=== PATIENT | female | born 1970 | race Caucasian/White ===

== ENCOUNTER 2024-01-30 09:12 | Outpatient (AMB) | payer BC, SELFPAY ==
--- NOTE | 2024-01-30 09:19 | MHC.PC.OV ---
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 Intake Note: New patient visit Chemist Organic Required: No Allergies No Known Allergies Allergy (Verified 01/30/24 09:27) Tobacco use date assessed: 01/30/24 Dental Screening Dental Screen Date: 01/30/24 Did you have a dental visit in the last 12 months?: Yes Did you have a dental problem in the last 6 months where you did not have access to dental care?: No Was dental information given to patient?: Patient has dentist HPI HPI Comments History of Present Illness Details This is a 53-year-old female with a past medical history of obesity, hereditary angioedema and breast abscess presenting for a follow up visit. She transferred from my panel at [facility] [place]. Hereditary angioedema is a familial condition, and the patient reports having an injectable medication, Rucanest, for acute episodes. However, she has not experienced any flare-ups for several years and maintains regular follow-ups with an antichecking iron worker, Dr. Schwarz, every six months. Regarding her overweight status, the patient has been on Wegovy. She reports being stable on a dose of 1.7 mg but plans to increase to 2.4 mg since weight loss plateaued. The medication has helped her lose approximately 40 pounds, and she manages her weight through lower carbohydrate and sugar intake as well as portion control. She tries to incorporate walking for exercise, though her activity has been limited by cold weather. She denies side effects on the medication. The patient mentioned a sudden appearance of a dry patch on her face since Tuesday. The patch is only a little itchy, and she has been applying a moisturizing cream.. There was no exposure to new products or adverse symptoms such as fever or chills. Records transfer pending. Past screenings like mammograms, colonoscopy, and routine gynecological visits are up to date per patient. Patient was informed and verbally consented to the use of an ambient scribe for clinic note documentation during this visit. ROS: - Dermatological: Reports a dry patch on the face. Denies itching. - Gastrointestinal: Denies nausea, vomiting. Reports occasional constipation. - General: Denies fever, chills. - Cardiovascular: Denies issues with blood pressure or cholesterol. - Other systems: Denies relevant symptoms. PE: Constitutional: Alert, in no distress. Head: Normocephalic. Neck: Supple, Full range of motion. No lymphadenopathy. Respiratory: Clear to auscultation. Cardiovascular: S1 S2 regular. No murmurs. Skin: Dry patch noted, mildly erythematous, slightly scaly, with a little central clearing on right chin. 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 1. Little interest or pleasure in doing things: not at all 2. Feeling down, depressed, or hopeless: not at all 3. Trouble falling or staying asleep, or sleeping too much: not at all 4. Feeling tired or having little energy: not at all 5. Poor appetite or overeating: not at all 6. Feeling bad about yourself - or that you are a failure or have let yourself or your family down: not at all 7. Trouble concentrating on things, such as reading the newspaper or watching television: not at all 8. Moving or speaking so slowly that other people could have noticed. Or the opposite - being so fidgety or restless that you have been moving around a lot more than usual: not at all 9. Thoughts that you would be better off or of hurting yourself in some way: not at all Total score: 0 Depression Screening Interpretation: Negative Depression Screening Done: Yes 26986 - PHQ-9 Billing: Yes Source: Developed by Drs. Aristides Hamilton, Debbie Carson, Javon Warner and colleagues, with an educational rosa maria from [employer]. Thrive Questionnaire Date Thrive assessed: 01/25/24 I am a: Patient What is your living situation today?: I have a steady place to live Within the past 12 months, did the food you bought not last and you didn't have the money to get more?: Never true Within the past 12 months, did you worry whether your food would run out before you got money to buy more?: Never true Do you have trouble paying for medicines?: No Do you have trouble getting transportation to medical appointments?: No Do you have trouble paying your heating and electricity bill?: No Do you have trouble taking care of your child, family member or friend?: No Do you have trouble with day-to-day activities such as bathing, preparing meals, shopping, managing finances, etc.?: No Are you currently unemployed and looking for a job?: No Are you interested in more education?: No Please select the resources that you would like help with: None Currently or been in a relationship where the following occur: No concerns reported THRIVE Score: 0 AUDIT C Alcohol Use Questionnaire (AUDIT-C) 1. How often do you have a drink containing alcohol?: Monthly or less 2. How many drinks containing alcohol do you have on a typical day when you are drinking?: 1 or 2 3. How often do you have six or more drinks on one occasion?: Never Total Score: 1 GREGORIA-7 AMB Questionnaire GREGORIA-7 Date GREGORIA - 7 assessed: 01/30/24 Feeling nervous, anxious, or on edge: 0 = Not at all Not being able to stop or control worryin = Not at all Worrying too much about different things: 0 = Not at all Trouble relaxin = Not at all Being so restless that it is hard to sit still: 0 = Not at all Becoming easily annoyed or irritable: 0 = Not at all Feeling afraid as if something awful might happen: 0 = Not at all Total GREGORIA-7 score (0-4 normal; 5-9 mild; 10-14 moderate; 15-21 severe): 0 Source: Developed by Drs. Aristides Hamilton, Javon Roach and colleagues, with an educational rosa maria from [employer]. GREGORIA-7 Assessment Billing GREGORIA-7 Assessment Tool: GREGORIA-7 Assessment 37706 Physical exam (Primary Care) Vital Signs: Last Vital Signs Pulse 78 01/30/24 09:25 BP 108/78 01/30/24 09:25 Pulse Ox 99 01/30/24 09:25 Oxygen Delivery Method Room Air 01/30/24 09:25 BMI result Body Mass Index 24.9 Tobacco/Smoking Status: Tobacco use Status Tobacco use date assessed 01/30/24 01/30/24 09:28 Patient Tobacco Use Status Former Tobacco user 01/30/24 09:28 e-Cigarette/Vaping Use Never Used 01/30/24 09:28 PHQ-9: PHQ-9 Score PHQ-9: Total score 0 01/30/24 09:28 Depression Screening Interpretation: Negative Thrive Assessment: Date of Thrive Assessment Date Thrive assessed 01/25/24 01/30/24 09:28 Currently or been in a relationship where the following occur: No concerns reported Coding Level of Care Code Est Pt Level 4 (74862) Complex EM visit Add On G2211 Diagnoses Hereditary angioedema D84.1 Obesity E66.9 Dermatitis L30.9 Additional Codes GREGORIA-7 Assessment Billing - GREGORIA-7 Assessment Tool: GREGORIA-7 Assessment 70363 ([id number]) PHQ-9 - 16665 - PHQ-9 Billing: Yes ([id number]) Assessment & Plan Assessment & Plan (1) Hereditary angioedema: Code(s): D84.1 - Defects in the complement system Category: Medical (2) Obesity: Code(s): E66.9 - Obesity, unspecified Category: Medical (3) Dermatitis: Code(s): L30.9 - Dermatitis, unspecified Plan 1. Hereditary Angioedema: The patient has not experienced any recent flare-ups and manages the condition with Rucanest injections as needed. Continue regular follow-ups with the antichecking iron worker every six months to monitor and update treatment as necessary. 2. Overweight: Continue Wegovy with plans to increase to 2.4 mg for enhanced weight management. Emphasized the importance of diet modifications, focusing on lower carbohydrate and sugar intake, and portion control. Encouraged maintaining regular physical activity as much as possible, considering seasonal challenges. 3. Dermatitis: Apply hydrocortisone 1% cream twice daily for 7-10 days. Topical steroids side effects reviewed. Patient advised to contact the office if symptoms do not improve or worsen. She will schedule a physical exam in 07/17/2024. Labs ordered to be done prior to physical exam. Orders: Orders Comprehensive Met. Panel Today D84.1 - Defects in the complement system, E66.9 - Obesity, unspecified, Z13.6 - Encounter for screening for cardiovascular disorders Lipid Panel Today D84.1 - Defects in the complement system, E66.9 - Obesity, unspecified, E78.5 - Hyperlipidemia, unspecified, Z13.6 - Encounter for screening for cardiovascular disorders Complete Blood Count no Diff Today D84.1 - Defects in the complement system, E66.9 - Obesity, unspecified, Z13.6 - Encounter for screening for cardiovascular disorders Medications: New semaglutide (weight loss) (Wegovy) 2.4 mg (0.75 mL) subcut QWEEK 3 mL 5RF hydrocortisone 1% (Anti-Itch (hydrocortisone)) 1 appl topical BID 10 days PRN 28.4 grams 0RF skin irritation
[2024-01-30 09:25] VITALS: BP 108/78; PULSE 78; O2SAT 99; BMI 24.9
== END 2024-01-30 09:55 | disposition home or self-care (01) ==
PROVIDERS: PCP Physician Assistant Medical; Visit Provider Physician Assistant Medical
DX: L30.9 Dermatitis, unspecified (principal); D84.1 Defects in the complement system; E66.9 Obesity, unspecified; Z68.24 Body mass index [BMI] 24.0-24.9, adult

== ENCOUNTER → 2024-01-30 09:12 | Outpatient (BNVA) | payer BC, SELFPAY | PROVIDERS: PCP Physician Assistant Medical; Visit Provider Physician Assistant Medical | DX: D84.1 Defects in the complement system (principal); E66.9 Obesity, unspecified; Z68.24 Body mass index [BMI] 24.0-24.9, adult; L30.9 Dermatitis, unspecified | CPT/HCPCS: 96127 ==

== ENCOUNTER 2024-07-12 08:44 | Outpatient (REF) | payer BC, SELFPAY ==
--- OUTSIDE RECORDS SUMMARY | 2024-07-12 09:09 | XMS_ITS | Data Portability ---
Author Organization [place] - [facility],, VI SOLORIO MD Address [address] [address] Care Team Providers Care Sterile Processing Tech Name Role Phone [facility] Primary Care Provide r Assessment No assessment recorded. Plan of Treatment Reminders Order Date Submit Date Provider Last Modified By Organization Details Last Modified Time Details Appointments ANNUAL EXAM 2024 11:00A M Vi Solorio MD Not available Not available Not available Lab pap test, thinprep, cervical 2023 024 [email or web address] [facility] (Centralized Electronic Ordering - All Locations), Patient Can Go To The Location Of Their Choice, [id number] 07/12/2023 07:26:13 hemoglobi n, gastroint estinal, stool 2023 024 [email or web address] In-Office Order, Internal Use Only DO Not Attach Compendium DO Not Attach Compendium, Do Not Delete/merge, [id number] 07/05/2023 10:10:13 pap test, thinprep, cervical 2022 023 [email or web address] [facility] (Centralized Electronic Ordering - All Locations), Patient Can Go To The Location Of Their Choice, [id number] 07/16/2022 07:27:04 fecal occult blood, stool 2022 023 [email or web address] 1 In-Office Order, Internal Use Only DO Not Attach Compendium DO Not Attach Compendium, Do Not Delete/merge, [id number] 07/02/2022 09:59:05 Referral None recorded. Procedures None recorded. Surgeries None recorded. Imaging MAMMO, screening , digital, bilateral - Breast Aspiratio n and/or Biopsy if needed 2023 024 [facility] [address] [place], [address], 08/16/2023 09:53:34 MAMMO, screening , digital, bilateral - Breast Aspiratio n and/or Biopsy if needed 2022 023 [facility] [address] [place], [address], 08/02/2022 09:28:03 Medication Orders fluconazo le 150 mg tablet 2021 022 [id number], [address], [id number], 07/02/2022 09:20:46 levofloxa lisha 500 mg tablet 2021 022 [facility] #[id number], [address] [address], [place], [place], [id number], 07/02/2022 09:20:50 Patient TargetsNo targets recorded. Patient Instructions Encounter Date Encounter Id Patient Instructions Last Modified By Organization Details Last Modified Time 11/23/2021 [id number] She is here because [facility] nad had the enlarging right breast abscess I and D, they put in a drain, which fell out this morning. She would like it rechecked as it is still painful, though it seems to be less red than on Tuesday. She notes they changed her antibiotic to Bactrim. Note from 11/17/21: right breast at the under edge of the breast around the 5 o'clock is a tender, erythematous, warm to the touch, 4 cm wide, 1 cm firm breast abscess, deep. She has an infected cyst of the right breast. Start dicloxacillin, it is too deep to be I and D. ' Start warm compresses BID, call if it worsens then would switch to levaquin. ____ On exam: right breast at the under edge of the breast around the 5 o'clock is a tender, erythematous, warm to the touch, 5 cm wide, 3 cm tall, firm breast abscess, draining purulent material on expression. The abscess is larger than it was last week when she was here, but she notes the erythema is much less than it was 2 days ago, so it is improving now. With slight pressure, 2 cc of purulent material is expressed, and a new dressing applied. She will continue the antibiotics and warm soaks, and return in 3 days to recheck. Call earlier if it enlarges. Not available 11/23/2021 11:56:31 11/26/2021 [id number] vaginal yeast infection: care instructions [facility] Not available 11/26/2021 11:19:44 She is here to recheck the breast abscess infection, it is not fully resolved with the Bactrim, is still draining purulent material, though less tender than before. The infection has note responded as would be expected if she were going to clear with the Bactrim, though it is a bit improved. As the weekend is coming, suggest she finish out the bactrim that ends on Tuesday. If not much improved by then, an rx for levaquin is called in to take as the infection had not cleared with a full course of sulfa. Possible side effects of tendon rupture with this medication, she is aware. RX Diflucan as she has been taking courses of antibiotics and this likely will bring on vaginal monila. All questions answered. Not available 11/26/2021 13:02:02 12/01/2021 [id number] She is here for recheck of her right breast abscess. She has 2 more days of her antibiotics left. She notes it is not painful anymore, and stopped draining fluid finally. On exam: right breast at the under edge of the breast around the 5 o'clock is a nontender resolving abscess, 2 wide, 2 cm cm tall. the incision opened with pressure, and 3 cc of purulent material was expressed, then just blood. The small amount of fluid remaining was expressed, the area looks to be improving greatly, and she still has 2 days of antibiotics left. Advised to return if it does not resolve or starts to worsen, otherwise it should slowly improve and resolve. Not available 12/01/2021 14:00:57 07/02/2022 [id number] learning about healthy weight Not available 07/02/2022 09:59:05 She is here for annual, she had a right breast abscess in that old cyst that had been noted at last annual, it required I and D in the ED, was still 5 cm days later, and took quite a while to heal. She was advised to have the nidus removed after it resolved however she prefers not to do that. __ note from 07/19: She is her for annual exam, as a new patient, last pap a year ago, always normal. She has hereditary angioedema, last swelling was around menopause, no episodes since then. She believes she should not take HRT due to this. She had a UTI in 03/21 and in 05/19, first time in many years. Does void post coitally every time. She has a 26 year old son, and two, older, step-daughters. She had regular menses stopped at 46, she had a period or two a year until age 49, no bleeding in well over a year now. On exam: right breast at the under edge of the breast around the 4 o'clock she has an oval, 1 cm by 5 mm cyst, she notes it is always there, she saw a breast surgeon, it was ultrasounded and she was offered removal but was told not necessary. ____ She appears to be doing well. . She is again advised to have the old cyst in the right breast surgically removed as remains as a place where an abscess can start again. She notes that she had a tooth abscess at the time, and believes that breast abscess was seeded from there, she prefers to not have breast surgery and accepts it may recur. Monthly self breast exam was taught, and stressed, and is advised to call if she discovers any new mass in the breast. Not available 07/02/2022 10:05:26 07/05/2023 [id number] learning about healthy weight Not available 07/05/2023 09:26:46 She is here for annual, doing well, menopause age 49. She had a right breast abscess, 2 years ago, still has the nidus. She went to a breast surgeon who did testing and declared it to be a cyst not requiring removal. note from 2022: She is here for annual, she had a right breast abscess in that old cyst that had been noted at last annual, it required I and D in the ED, was still 5 cm days later, and took quite a while to heal. She was advised to have the nidus removed after it resolved however she prefers not to do that. She appears to be doing well. . Monthly self breast exam was taught, and stressed, and is advised to call if she discovers any new mass in the breast. janice Not available 07/05/2023 09:58:11 Reason for Referral None Reported. Results Created Date Observation Date Name Description Value Unit Range Abnormal Flag Note LastModifiedBy Organization Detail LastModifiedTime 07/03/19 23 07/02/2022 [facility] CYTOL OGY results Lurdes nt Name: SEBASTIÁN PEOPLES : 1969 (Age: 52) Lab Acces ralph #: [id number] Colle ction Date: 023 Acces ralph Date: 023 Sign Out Date: 2022 Tissu e Sourc e: 1: THINP REP SELF DEFENSE INSTRUCTOR PAP TEST, CERVI JEZ: Final Diagn osis: NEGAT AIXA FOR INTRA EPITH ELIAL LESIO N OR MALIG EVGENY . Satis facto ry for evalu ation . Endoc ervic al/tr ansfo rmati on zone prese nt. Clini jez Histo ry: Date of Last Menst rual Perio d: not avail able Menst rual Histo ry: not avail able Contr acept aixa Histo ry: not avail able Ancil tara Testi ng: HPV (ASCU S) Case image d by the ThinP rep Imagi ng Systalbino m with brandon vega or revie w. Clini jez Histo ry (othe r): Z01.4 19, LPS 2 NEG Phone #: [phone], On-Ca ll Patho logis t: [id number] Not Available [facility] (Centralized Electronic Ordering - All Locations) Patient Can Go To The Location Of Their Choice, [id number] 07/15/2022 09:20:35 07/03/19 23 07/02/2022 fecal occul t blood , stool Occult Blood negati ve Not Available In-Office Order Internal Use Only DO Not Attach Compendium DO Not Attach Compendium, Do Not Delete/merge, [id number] 07/02/2022 09:16:56 07/06/19 24 07/08/2023 PAP IG (IMAG E GUIDE D) diagnosis: Keena KRUSE FOR INTRA EPITH ELIAL NATALY Wh[place]ide OR ROSIE PEPPER . Not Available [facility] ([facility]) [address] [place], [address], 07/08/2023 16:06:58 07/06/19 24 07/08/2023 PAP IG (IMAG E GUIDE D) specimen adequacy: Keena valentine Satis facto ry for evalu ation . Endoc ervic al and/o r squam ous metap lasti c cells (endo cervi jez compo nent) are prese nt. Not Available [facility] ([facility]) [address] [facility], [place], [address], 07/08/2023 16:06:58 07/06/19 24 07/08/2023 PAP IG (IMAG E GUIDE D) clinician provided ICD10: Keena valentine Z01.4 19 Not Available [facility] ([facility]) [address] [place], [address], 07/08/2023 16:06:58 07/06/19 24 07/08/2023 PAP IG (IMAG E GUIDE D) performed by: Keena Beltran, Cytot arsh valentine (ASCP ) Not Available [facility] ([facility]) [address] [place], [address], 07/08/2023 16:06:58 07/06/19 24 07/08/2023 PAP IG (IMAG E GUIDE D) . . Not Available [facility] ([facility]) [address] [facility], [place], [address], 07/08/2023 16:06:58 07/06/19 24 07/08/2023 PAP IG (IMAG E GUIDE D) note: Commen t The Pap smear is a scree paul test desig dee to aid in the detec tion of sun ligna nt and malig nant condi tions of the uteri ne cervi x. It is not a diagn ostic proce dure and shoul d not be used as the sole means of detec ting cervi jez cance r. Both false -posi tive and false -nega tive repor ts do occur . Not Available [facility] ([facility]) [address] [facility], [place], [address], 07/08/2023 16:06:58 07/06/19 24 07/08/2023 PAP IG (IMAG E GUIDE D) test methodology: Keena t This liqui d based ThinP rep(R ) pap test was scree dee with the use of an image guide d systalbino m. Not Available [facility] ([facility]) [address] [facility], [place], [address], 07/08/2023 16:06:58 07/06/19 24 07/06/2023 hemog lobin , gastr ointe eneida l, stool Occult Blood negati ve Not Available In-Office Order Internal Use Only DO Not Attach Compendium DO Not Attach Compendium, Do Not Delete/merge, [id number] 07/05/2023 09:19:44 08/03/19 23 07/31/2022 MAMMO , scree paul, digit al, bilat eral No observ ation record ed. [address], [address], 08/09/2022 11:01:15 08/20/19 23 08/19/2022 US, breas t No observ ation record ed. [address], [address], 08/19/2022 10:23:08 08/20/19 23 08/19/2022 MAMMO , diagn ostic , digit al, unila teral No observ ation record ed. [address], [address], 08/19/2022 10:23:08 08/16/19 24 08/16/2023 MAMMO , scree paul, digit al, bilat eral No observ ation record ed. Not Available 07/29 10:07:33 Result Notes None recorded. Problems Name Problem SNOMED Code Status Onset Date Resolution Date Notes Provider Name and Address Organization Details Recorded Time Hereditary angioedema [id number] Active 022 GABBIE Cueto in [facility], 08:54:16 Problem Notes None recorded. Procedures Surgical History Date Name Laterality Status Provider Name and Address Organization Details Recorded Time 08/16/19 24 Most Recent Mammogram completed Lucía Faulkner in [facility], 07/03/2024 09:53:00 08/30/19 19 cholecystectomy completed Lucía Faulkner in [facility], 06/23/2021 08:45:10 02/14/20 13 Dilation and Curettage completed Lucía Faulkner in [facility], 06/23/2021 08:44:31 Imaging Results Imaging Date Name Status LastModified by [facility] Details LastModified Time 07/31/2022 MAMMO, screening, digital, bilateral completed [address], [address], 08/09/2022 11:01:15 08/19/2022 US, breast completed [facility] [address] [place], [address], 08/19/2022 10:23:08 08/19/2022 MAMMO, diagnostic, digital, unilateral completed [facility] [address] [place], [address], 08/19/2022 10:23:08 08/16/2023 MAMMO, screening, digital, bilateral completed [facility] Information not available 08/16/2023 10:07:33 Procedure Notes None recorded. Medical Equipment None Reported. Allergies Allergen ID Allergen Name Allergen Category Reaction Reaction Severity Criticality Documentation Date Start Date Code Code System Note Provider Name and Address Organization Details Recorded Time 89228 estrogens , conjugate d (LONGTERM) medicatio n angioedem a Not available Not available 06/23/2021 4094 RxNorm Lucía novoa [place] [facility], 08:52:49 Medications Name Sig Start Date Stop Date Status Note LastModified by Organization Details LastModified Time dicloxacill in 500 mg capsule TAKE 1 CAPSULE BY MOUTH EVERY 6 HOURS FOR 7 DAYS 11/23 completed Not Available Not Available Not Available clindamycin HCl 300 mg capsule TAKE 1 CAPSULE BY MOUTH THREE TIME DAILY UNTIL GONE 07/02 completed Not Available Not Available Not Available fluconazole 150 mg tablet TAKE 1 TABLET BY MOUTH 1 TIME. MAY REPEAT A DOSE IN 72 HOURS IF SYMPTOMS HAVE NOT COMPLETEL Y RESOLVED 07/02 completed Not Available Not Available Not Available sulfamethox azole 400 mg-trimetho prim 80 mg tablet TAKE 1 TABLET BY MOUTH EVERY 12 HOURS FOR 7 DAYS 07/02 completed Not Available Not Available Not Available sulfamethox azole 800 mg-trimetho prim 160 mg tablet TAKE 1 TABLET BY MOUTH EVERY 12 HOURS FOR 5 DAYS 07/01 completed Not Available Not Available Not Available amoxicillin 500 mg tablet TAKE 1 TABLET BY MOUTH EVERY 8 HOURS UNTIL GONE. 07/02 completed Not Available Not Available Not Available bisacodyl 5 mg tablet,nina yed release 07/01 completed Not Available Not Available Not Available levofloxaci n 500 mg tablet TAKE 1 TABLET BY MOUTH EVERY 24 HOURS FOR 5 DAYS 07/02 completed Not Available Not Available Not Available nitrofurant oin monohydrate /macrocryst als 100 mg capsule TAKE 1 CAPSULE BY MOUTH EVERY 12 HOURS FOR 5 DAYS 07/01 completed Not Available Not Available Not Available peg 3350-electr olytes 236 gram-22.74 gram-6.74 gram-5.86 gram solution 07/01 completed Not Available Not Available Not Available Ruconest 2,100 unit intravenous solution active Not Available Not Available Not Available Wegovy 2.4 mg/0.75 mL subcutaneou s pen injector 07/04 completed Not Available Not Available Not Available Wegovy 1.7 mg/0.75 mL subcutaneou s pen injector active Not Available Not Available Not Available Wegovy 1 mg/0.5 mL subcutaneou s pen injector 07/04 completed Not Available Not Available Not Available Wegovy 0.25 mg/0.5 mL subcutaneou s pen injector INJECT 0.25MG UNDER THE SKIN EVERY 7 DAYS 07/04 completed Not Available Not Available Not Available Wegovy 0.5 mg/0.5 mL subcutaneou s pen injector 07/04 completed Not Available Not Available Not Available Flowflex COVID-19 Antigen Home Test kit active Not Available Not Available Not Available Vitals Date Recorded Body height Body mass index (BMI) Body weight Body temperature Heart rate Systolic blood pressure Diastolic blood pressure Provider Name and Address Organization Details Last Updated DateTime 2 175.26 cm 29.3 kg/m2 29368.4 4 g 98.2 [degF] 73 /min 135 mm[Hg] 70 mm[Hg] Lucía Zepeda [facility], 2 09:39:06 Date Recorded Body height Body mass index (BMI) Body weight Heart rate Systolic blood pressure Diastolic blood pressure Provider Name and Address Organization Details Last Updated DateTime 2 175.26 cm 29.2 kg/m2 21165.2 9 g 86 /min 128 mm[Hg] 67 mm[Hg] Carmen Zepeda [facility], 2 10:35:40 Date Recorded Body height Body mass index (BMI) Body weight Body temperature Heart rate Systolic blood pressure Diastolic blood pressure Provider Name and Address Organization Details Last Updated DateTime 2 175.26 cm 29.3 kg/m2 75719.0 1 g 98.2 [degF] 77 /min 155 mm[Hg] 73 mm[Hg] Lucía Faulkner in [facility], 2 12:58:48 Date Recorded Body height Body mass index (BMI) Body weight Heart rate Systolic blood pressure Diastolic blood pressure Provider Name and Address Organization Details Last Updated DateTime 3 172.72 cm 29.8 kg/m2 35904.1 g 76 /min 149 mm[Hg] 87 mm[Hg] Lucía Faulkner in [facility], 3 09:19:32 Date Recorded Body height Body mass index (BMI) Body weight Heart rate Systolic blood pressure Diastolic blood pressure Provider Name and Address Organization Details Last Updated DateTime 4 172.72 cm 23.9 kg/m2 61787.7 2 g 65 /min 144 mm[Hg] 81 mm[Hg] apple Faulkner in [facility], 4 09:20:09 Social History Question Answer Notes LastModified by Organizat ion Details LastModified Time Tobacco Smoking Status Former Smoker quit 2017 GABBIE Cueto in [facility], 06/23/2021 08:51:55 What Is Your Level Of Caffeine Consumption? Moderate Information not available 07/01/2021 In The 14 Days Before Symptom Onset, Have You Had Close Contact With A Laboratory-confir med COVID-19 While That Case Was Ill? No Information not available 07/01/2021 In The 14 Days Before Symptom Onset, Have You Had Close Contact With A Person Who Is Under Investigation For COVID-19 While That Person Was Ill? No Information not available 07/01/2021 Have You Been To An Area Known To Be High Risk For COVID-19? No Information not available 07/01/2021 What Is The Highest Grade Or Level Of School You Have Completed Or The Highest Degree You Have Received? [id number] Information not available 07/01/2021 Who Is Your Employer? [employer] Information not available 07/01/2021 Are There Any Guns Present In Your Home? Yes Information not available 07/01/2021 To Which Gender Do You Self-identify? Female Information not available 07/01/2021 What Was The Date Of Your Most Recent Tobacco Screening? 07/05/2023 Information not available 07/05/2023 What Is Your Relationship Status? Information not available 07/01/2021 Are You Sexually Active? Yes Information not available 07/01/2021 Sex: Female Functional Status Question Answer Note LastModified by Organizat ion Details LastModified Time Do you use any illicit or recreational drugs? No Information not available 07/01/2021 Do you or have you ever used any other forms of tobacco or nicotine? No Information not available 07/01/2021 What is your level of alcohol consumption? None Information not available 07/01/2021 Are you currently employed? 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 None Information not available 07/01/2021 Mental Status Question Answer Note LastModified by Organization D etails LastModified Time Do you feel stressed (tense, restless, nervous, or anxious, or unable to sleep at night)? [id number] Information not available 07/05/2023 Family History Relationship Description Onset Age of this Age Resolved Age Notes LastModified by Organization Details LastModified Time Maternal Aunt Angioedema [email or web address] Not available 06/23/2021 08:45:36 Father Disorder of coronary artery [email or web address] Not available 2021 08:46:32 Father Diabetes mellitus [email or web address] Not available 2021 08:46:38 Father Hypertensive disorder [email or web address] Not available 2021 08:46:50 Mother Angioedema [email or web address] Not availa ble 06/23/2021 08:47:07 Mother Osteoarthrit is [email or web address] Not available 2021 08:47:27 Mother Parkinson's disease [email or web address] Not available 2021 08:47:42 Son Angioedema [email or web address] Not availa ble 06/23/2021 08:47:57 Sister Fibromyalgia [email or web address] Not avai lable 06/23/2021 08:48:46 Medical History Condition Response Anesthesia complications N High Blood Pressure N Candidate for MyRisk panel N Autoimmune Condition N Kidney or Bladder Problems N Thyroid Problems N Depression N Lung Disease N GI Problems N Defects or Inherited Disease N Anemia N History of Ovarian Cancer N History of Breast Cancer N JENNIE exposure N BRCA testing in past N Osteopenia N Psychiatric Illness N Anxiety Disorder N Diabetes N Arthritis N Headaches or Migraines N Infertility N Asthma N History of Cancer N Endometriosis N Hepatitis N Heart Disease N Hypertension N Osteoporosis N Gynecological History Statement/Question Response Menses Monthly N If Post Menopausal, Age at Menopause 46 Age at Menarche 13 Current Control Method Partner Vas ectomy Most Recent Mammogram 08/16/2023 Age at First Child 25 Obstetrics History GPAL:G 1 P 1 0 0 1 Type Value Full Term 1 Living 1 Total 1 Immunizations Vaccine Type Date Status Note Provider Nam e and Address Organization Details Recorded Time COVID-19, mRNA, LNP-S, PF, 100 mcg/0.5mL dose or 50 mcg/0.25mL dose 1 completed GABBIE Ziegler in [facility], 07/01/2021 08:30:51 Influenza, split virus, quadrivalent, preservative 1 completed GABBIE Ziegler in [facility], 07/01/2021 08:31:00 Tdap 3 completed GABBIE Cueto in [facility], 11/23/2021 09:38:40 Influenza, split virus, quadrivalent, preservative 9 completed GABBIE Cueto in [facility], 11/23/2021 09:38:40 zoster recombinant 2 completed GABBIE Cueto in [facility], 11/23/2021 09:38:40 Influenza, split virus, quadrivalent, PF 1 completed Lucía Meczywor null, [place] [facility], 11/23/2021 09:38:40 COVID-19, mRNA, LNP-S, PF, 100 mcg/0.5mL dose or 50 mcg/0.25mL dose 1 completed Lucía Meczywor null, [place] [facility], 11/23/2021 09:38:40 COVID-19, mRNA, LNP-S, PF, 100 mcg/0.5mL dose or 50 mcg/0.25mL dose 1 completed Lucía Meczywor null, [place] [facility], 11/23/2021 09:38:40 Influenza, split virus, quadrivalent, PF 0 completed Lucía Meczywor null, [place] [facility], 11/23/2021 09:38:40 COVID-19, mRNA, LNP-S, PF, 100 mcg/0.5mL dose or 50 mcg/0.25mL dose 1 completed Lucía Meczywor null, [place] [facility], 11/23/2021 09:38:40 Influenza, split virus, trivalent, preservative 3 completed Lucía Meczywor null, [place] [facility], 11/23/2021 09:38:40 influenza, unspecified formulation 2 completed Lucía Meczywor null, [place] [facility], 07/02/2022 09:21:39 Past Encounters Encounter ID Performer Location Encounter Start Date Encounter Closed Date Diagnosis/Indication Diagnosis SNOMED-CT Code Diagnosis ICD10 Code Diagnosis Note [id number] MD IV Corbett MD [address] [facility], [place] [address] [place] [place] [id number] 07/01/2021 08:23:17 07/01/2021 11:41:22 Specialized medical examination 04120762 Z01.419 Screening for malignant neoplasm of rectum 927280092 Z12.12 Screening mammography 24 884464 Z12.31 [id number] MD VI Corbett MD [address] [place], [place] [address] [place] [address] 11/17/2021 10:53:35 11/17/2021 14:54:29 Nonpuerperal abscess of right breast [id number] [id number] N61.1 [id number] MD VI Corbett MD [address] [place] [address] [place] [id number] 11/23/2021 09:34:32 11/23/2021 12:05:52 Nonpuerperal abscess of right breast [id number] 8293571 N61.1 [id number] MD VI Corebtt MD [address] [place] [address] [place] [id number] 11/26/2021 10:33:33 11/26/2021 13:43:28 Nonpuerperal abscess of right breast [id number] N61.1 Candidal vulvovaginitis [id number] B37.3 [id number] MD VI Corbett MD [address] [place], [place] [address] [address] 12/01/2021 12:55:15 12/01/2021 14:12:35 Nonpuerperal abscess of right breast [id number] N61.1 [id number] MD VI Corbett MD [address] [place] [address] [place] [address] 07/02/2022 09:16:08 07/02/2022 10:41:27 Specialized medical examination [id number] Z01.419 Screening for malignant neoplasm of rectum [id number] Z12.12 Screening mammography 24 [id number] Z12.31 [id number] MD VI Corbett MD [address] [place], [place] [address] [address] 07/05/2023 09:16:31 07/05/2023 10:10:26 Specialized medical examination [id number] Z01.419 Screening for malignant neoplasm of rectum [id number] Z12.12 Screening mammography 24 [id number] Z12.31 Health Concerns Section Related Observation LastModified by Organization Detai ls LastModified Time None Recorded Concern Status LastModified by Organization Details LastModified Time None Recorded Advance Directives Directive None Recorded Payers Encounter Date Sequence Insurance Name Policy Number Policy Walker Covered Member ID Walker Member ID Guarantor Name 11/23/2021 1 [place] [id number] Seema Elmer [id number] Seema Elmer 11/26/2021 1 [place] [id number] Seema Elmer [id number] Seema Elmer 12/01/2021 1 [place] [id number] Seema Elmer [id number] Seema Elmer 07/02/2022 1 [place] [facility] (O) [id number] Seema Elmer [id number] Seema Elmer 07/05/2023 1 [place] [facility] ([place]) [id number] Seema Elmer [id number] Seema Elmer Notes Date Note Type Note Provider Name and Address Organization Details Recorded Time 11/23/2021 text/html She is here because she went to 4 ED on 11/20 nad had the enlarging right breast abscess I and D, they put in a drain, which fell out this morning. She would like it rechecked as it is still painful, though it seems to be less red than on Tuesday. She notes they changed her antibiotic to Bactrim. Note from 11/17/21: right breast at the under edge of the breast around the 5 o'clock is a tender, erythematous, warm to the touch, 4 cm wide, 1 cm firm breast abscess, deep.She has an infected cyst of the right breast. Start dicloxacillin, it is too deep to be I and D. ' Start warm compresses BID, call if it worsens then would switch to levaquin. Vi Solorio MD [address], [place], [phone], [facility], 11/23/2021 11:56:59 11/26/2021 text/html She is here to recheck the infection, it is not fully resolved with the Bactrim, is still draining purulent material, though less tender than before. Vi Solorio MD [address], [place], [phone], [facility], 11/26/2021 13:02:17 12/01/2021 text/html She is here for recheck of her right breast abscess. She has 2 more days of her antibiotics left. She notes it is not painful anymore, and stopped draining fluid finally. Vi Solorio MD [address], [place], [phone], [facility], 12/01/2021 14:01:26 07/02/2022 text/html She is here for annual, she had a right breast abscess in that old cyst that had been noted at last annual, it required I and D in the ED, was still 5 cm days later, and took quite a while to heal. She was advised to have the nidus removed after it resolved however she prefers not to do that. _ note from 07/19: She is her for annual exam, as a new patient, last pap a year ago, always normal. She has hereditary angioedema, last swelling was around menopause, no episodes since then. She believes she should not take HRT due to this.She had a UTI in 03/21 and in 05/19, first time in many years. Does void post coitally every time.She has a 26 year old son, and two, older, step-daughters.She had regular menses stopped at 46, she had a period or two a year until age 49, no bleeding in well over a year now.On exam:right breast at the under edge of the breast around the 4 o'clock she has an oval, 1 cm by 5 mm cyst, she notes it is always there, she saw a breast surgeon, it was ultrasounded and she was offered removal but was told not necessary. Vi Solorio MD [address] [facility],[address], [place], [phone], [place] [facility], 07/02/2022 10:05:46 07/05/2023 text/html She is here for annual, doing well, menopause age 49. She had a right breast abscess, 2 years ago, still has the nidus. She went to a breast surgeon who did testing and declared it to be a cyst not requiring removal. note from 2022: She is here for annual, she had a right breast abscess in that old cyst that had been noted at last annual, it required I and D in the ED, was still 5 cm days later, and took quite a while to heal. She was advised to have the nidus removed after it resolved however she prefers not to do that. Vi Solorio MD [address] [facility],[address], [place], [phone], [place] [facility], 07/05/2023 09:58:36 OBGyn Episode No OBEpisode recorded.
[2024-07-12 11:52] LABS: Hematocrit 41.8 % (37.0-47.0); Hemoglobin 13.8 g/dl (12.0-16.0); Mean Corpuscular Hemoglobin 29.4 pg (27.0-33.0); Mean Corpuscular Volume 89.1 fL (80.0-98.0); Mean Platelet Volume 10.1 fL (9.4-12.3); Platelet Count 182 X10*3/uL (160-400); Red Blood Count 4.69 X10*6/uL (4.20-5.50); Red Cell Distribution Width 13.3 % (11.0-16.0); White Blood Count 3.4 X10*3/uL (4.8-10.8)
[2024-07-12 12:10] LABS: Alanine Aminotransferase 119 U/L (0-31); Alkaline Phosphatase 71 U/L (39-117); Anion Gap 11 (12-20); Aspartate Amino Transferase 44 U/L (5-31); Bilirubin Total 0.5 mg/dL (0.0-1.0); Blood Urea Nitrogen 10 mg/dL (9-16); Calcium 9.6 mg/dL (8.4-10.2); Carbon Dioxide 29 mmol/L (22-29); Chloride 109 mmol/L (96-108); Cholesterol 167 mg/dL (<200); Estimated Glomerular Filt Rate > 60; Glucose Random 85 mg/dL (60-115); HDL Cholesterol 61 mg/dL (>40); LDL Cholesterol Calculated 95 mg/dL (<100); Potassium 4.3 mmol/L (3.3-5.1); Sodium 145 mmol/L (135-145); Total Protein 6.6 g/dL (6.5-8.0); Triglycerides 58 mg/dL (<150)
== END 2024-07-12 08:45 | disposition home or self-care (01) ==
LOC: HO.WFDLDS 08:44
PROVIDERS: Visit Provider Physician Assistant Medical
DX: E78.5 Hyperlipidemia, unspecified (principal); D84.1 Defects in the complement system; E66.9 Obesity, unspecified; Z13.6 Encounter for screening for cardiovascular disorders
CPT/HCPCS: 36415; 80053; 80061; 85027

== ENCOUNTER 2024-07-16 08:23 | Outpatient (AMB) | payer BC, SELFPAY ==
--- NOTE | 2024-07-16 08:29 | A.OFFPC_ITS ---
Vital Signs 07/16/24 08:34 Height 5 ft 7 in Weight 156 lb 4 oz BMI 24.5 BP 106/80 Blood Pressure Location Rt brachial Position Sitting Pulse 85 Pulse Source Pulse Oximeter Temp 98.7 F Temp Source Temporal Artery Scan Pulse Oximetry (%) 99 Oxygen Delivery Method Room Air Intake Visit Reasons: PE Intake Note: Seema presents in the office for her annual physical. Allergies No Known Allergies Allergy (Verified 07/16/24 08:32) Medication List - Last Reconciled 07/16/24 by LEW Doshi semaglutide (weight loss) (Wegovy) 2.4 mg (0.75 mL) subcut QWEEK Tobacco use date assessed: 07/16/24 Dental Screening Dental Screen Date: 07/16/24 Did you have a dental visit in the last 12 months?: Yes Did you have a dental problem in the last 6 months where you did not have access to dental care?: No Was dental information given to patient?: Patient has dentist HPI HPI Comments History of Present Illness Details This is a 54-year-old female with a past medical history of obesity, hereditary angioedema and breast abscess presenting for a physical exam. Hereditary angioedema is a familial condition, and the patient reports having an injectable medication, Rucanest, for acute episodes. However, she has not experienced any flare-ups for several years and maintains regular follow-ups with an car storer, Dr. Schwarz, every six months. Regarding her weight status, the patient has been on Wegovy. She denies side effects. She takes 2.5 mg weekly. She has lost 40 lb on the medication. She exercises by walking and follows a low carbohydrate diet. She drinks alcohol only occasionally.. Per [facility] records she had a colonoscopy at age 50, and it was recommended she repeat it in 10 years. Patient says her manager surgical orders the mammogram, and she has an appointment in July. Last Tdap vaccine 01/08/2013. Declined against recommendation today. She has a few skin lesions she would like examined. She has noted the joints of her fingers appear knobby. Her mother has rheumatoid arthritis. They are not limiting her ADLs, and she does not have pain associated with this. She had blood work recently which showed elevated liver enzymes and a decreased white blood cell count. At the time she returned from a cruise and was sick with a cold. She had also been using Tylenol products to treat her symptoms. Her symptoms resolved. ROS: Constitutional: No unexplained weight loss, fever, chills, fatigue or night sweats. Eyes: No vision changes, blurry vision, double vision, eye pain, eye redness, eye discharge. ENT: No hearing loss, sneezing, congestion, runny nose or sore throat. Respiratory: No shortness of breath, cough or sputum production. Cardiovascular: No chest pain, chest pressure or chest discomfort. No palpitations or pedal edema. Gastrointestinal: No anorexia, nausea, vomiting or diarrhea. No abdominal pain or blood in stool. Genitourinary: No dysuria, hematuria, urinary frequency. Neurologic: No headache, dizziness, syncope, unilateral weakness, ataxia, numbness or tingling in the extremities. Musculoskeletal: No muscle pain, back pain. See HPI Hematologic/Lymphatics: No bleeding or bruising. No painful lymph nodes. Skin: See HPI Endocrine: No cold or heat intolerance. No polyuria or polydipsia. Psychiatric: No depression or anxiety. No SI/HI. Physical exam: Constitutional: Alert, in no distress. Head: Normocephalic. Eyes: Pupils are equal, round and reactive to light. Extraocular muscles intact. Ear, Nose and Throat: Canals clear. TMs normal. Normal nasal mucosa. No nasal discharge. No oral lesions. Neck: Supple, Full range of motion. No lymphadenopathy. No palpable thyroid masses. Respiratory: Clear to auscultation. Cardiovascular: S1 S2 regular. No murmurs. No carotid bruits. Gastrointestinal: Abdomen soft, non-tender, non-distended. Normal bowel sounds. No palpable masses. Neurologic: No focal neurological deficits. Symmetric patellar reflexes. Moves all extremities spontaneously. Sensation intact bilaterally. Skin: 1 cm superficial, soft tissue lump on the right posterior thigh which is somewhat mobile, soft, nontender to palpation and no discoloration. There is a 3 mm erythematous skin lesion on the left palomino with a small hemorrhagic crust at the center. Musculoskeletal: finger joints with knobby appearance, full range of motion of the fingers and hands, nontender to palpation. Extremities: Warm and well perfused. No clubbing, cyanosis or edema. Intact peripheral pulses bilaterally. 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 1. Little interest or pleasure in doing things: not at all 2. Feeling down, depressed, or hopeless: not at all 3. Trouble falling or staying asleep, or sleeping too much: not at all 4. Feeling tired or having little energy: not at all 5. Poor appetite or overeating: not at all 6. Feeling bad about yourself - or that you are a failure or have let yourself or your family down: not at all 7. Trouble concentrating on things, such as reading the newspaper or watching television: not at all 8. Moving or speaking so slowly that other people could have noticed. Or the opposite - being so fidgety or restless that you have been moving around a lot more than usual: not at all 9. Thoughts that you would be better off or of hurting yourself in some way: not at all Total score: 0 Depression Screening Interpretation: Negative Depression Screening Done: Yes 95844 - PHQ-9 Billing: Yes Source: Developed by Drs. Aristides Hamilton, Debbie Carson, Javon Warner and colleagues, with an educational rosa maria from [employer]. Thrive Questionnaire Date Thrive assessed: 07/16/24 I am a: Patient What is your living situation today?: I have a steady place to live Within the past 12 months, did the food you bought not last and you didn't have the money to get more?: Never true Within the past 12 months, did you worry whether your food would run out before you got money to buy more?: Never true Do you have trouble paying for medicines?: No Do you have trouble getting transportation to medical appointments?: No Do you have trouble paying your heating and electricity bill?: No Do you have trouble taking care of your child, family member or friend?: No Do you have trouble with day-to-day activities such as bathing, preparing meals, shopping, managing finances, etc.?: No Are you currently unemployed and looking for a job?: No Are you interested in more education?: No Please select the resources that you would like help with: None Currently or been in a relationship where the following occur: No concerns reported THRIVE Score: 0 AUDIT C Alcohol Use Questionnaire (AUDIT-C) 1. How often do you have a drink containing alcohol?: Monthly or less 2. How many drinks containing alcohol do you have on a typical day when you are drinking?: 1 or 2 3. How often do you have six or more drinks on one occasion?: Never Total Score: 1 Score Reviewed/Action Taken: No GREGORIA-7 AMB Questionnaire GREGORIA-7 Date GREGORIA - 7 assessed: 07/16/24 Feeling nervous, anxious, or on edge: 0 = Not at all Not being able to stop or control worryin = Not at all Worrying too much about different things: 0 = Not at all Trouble relaxin = Not at all Being so restless that it is hard to sit still: 0 = Not at all Becoming easily annoyed or irritable: 0 = Not at all Feeling afraid as if something awful might happen: 0 = Not at all Total GREGORIA-7 score (0-4 normal; 5-9 mild; 10-14 moderate; 15-21 severe): 0 Source: Developed by Drs. Aristides Hamilton, Debbie Carson, Javon Warner and colleagues, with an educational rosa maria from [employer]. GREGORIA-7 Assessment Billing GREGORIA-7 Assessment Tool: GREGORIA-7 Assessment 57696 Physical exam (Primary Care) Vital Signs: Last Vital Signs Temp 98.7 F 07/16/24 08:34 Pulse 85 07/16/24 08:34 BP 106/80 07/16/24 08:34 Pulse Ox 99 07/16/24 08:34 Oxygen Delivery Method Room Air 07/16/24 08:34 BMI result Body Mass Index 24.5 Tobacco/Smoking Status: Tobacco use Status Tobacco use date assessed 01/30/24 07/16/24 08:31 Patient Tobacco Use Status Former Tobacco user 07/16/24 08:34 e-Cigarette/Vaping Use Never Used 07/16/24 08:34 PHQ-9: PHQ-9 Score PHQ-9: Total score 0 07/16/24 08:31 Depression Screening Interpretation: Negative Thrive Assessment: Date of Thrive Assessment Date Thrive assessed 07/16/24 07/16/24 08:31 Currently or been in a relationship where the following occur: No concerns reported Coding Level of Care Code Est Pt Prev Care 40-64y(05958) Diagnoses Joint problem M25.9 Obesity E66.9 Hereditary angioedema D84.1 Skin lesion L98.9 Routine physical examination Z00.00 Elevated liver enzymes R74.8 Decreased white blood cell count D72.819 Additional Codes GREGORIA-7 Assessment Billing - GREGORIA-7 Assessment Tool: GREGORIA-7 Assessment 69010 ([id number]) PHQ-9 - 65870 - PHQ-9 Billing: Yes ([id number]) Assessment & Plan Assessment & Plan (1) Joint problem: Code(s): M25.9 - Joint disorder, unspecified Category: Medical Plan: Check rheumatoid factor. (2) Obesity: Code(s): E66.9 - Obesity, unspecified Category: Medical Plan: Continue lifestyle modifications, exercise, decrease portion sizes and Wegovy 2.4 mg weekly. (3) Hereditary angioedema: Code(s): D84.1 - Defects in the complement system Category: Medical Plan: Stable. Followed by Allergy and immunology. (4) Skin lesion: Code(s): L98.9 - Disorder of the skin and subcutaneous tissue, unspecified Category: Medical Plan: Refer to dermatology for evaluation of skin lesions. Recommended skin exam as well. (5) Routine physical examination: Code(s): Z00.00 - Encounter for general adult medical examination without abnormal findings Category: Medical Plan: Patient is seen today for a routine physical. As part of this visit we reviewed the following issues, which are considered and essential part of preventative health in this age group: - Breast Cancer screening - Annual Cable Installer Repairer exam - Screening for colon cancer - Blood pressure screening annually - Cholesterol screening - Osteoporosis prevention including calcium/vitamin D intake, weight bearing exercise & smoking cessation - Nutritional and exercise counseling - Counseling of injury prevention including fire prevention, smoke alarms and seat belt usage - Screening for depression - Education about skin cancer - Recommendations about immunizations - Recommendation of an eye exam - Screening for substance abuse - Genetic cancer risk screening (6) Elevated liver enzymes: Code(s): R74.8 - Abnormal levels of other serum enzymes Category: Medical Plan: Elevated white blood cell count and elevated liver enzymes may have been due to viral infection and using Tylenol products. She is better now. She will repeat the labs in 3-4 weeks. (7) Decreased white blood cell count: Code(s): D72.819 - Decreased white blood cell count, unspecified Category: Medical Plan Schedule physical exam in 1 year. Orders: Orders Alanine Aminotransferase Today M25.9 - Joint disorder, unspecified, R79.89 - Other specified abnormal findings of blood chemistry Rheumatoid Factor Today M25.9 - Joint disorder, unspecified Complete Blood Count Auto Diff Today M25.9 - Joint disorder, unspecified Aspartate Amino Transferase Today M25.9 - Joint disorder, unspecified Referrals Dermatology Referral L98.9 - Disorder of the skin and subcutaneous tissue, unspecified Medications: Refilled semaglutide (weight loss) (Wegovy) 2.4 mg (0.75 mL) subcut QWEEK 3 mL 5RF Discontinued hydrocortisone 1% (Anti-Itch (hydrocortisone)) Discontinued Reason: Doctor's Order 1 appl topical BID 10 days PRN 28.4 grams 0RF skin irritation
--- OUTSIDE RECORDS SUMMARY | 2024-07-16 08:29 | XMS_ITS | Data Portability ---
Author Organization [place] - [facility],, VI SOLORIO MD Address [address] [address] Care Team Providers Care Litigation Associate Name Role Phone [facility] Primary Care Provide r [...] Go To The Location Of Their Choice, [id number] 07/12/2023 07:26:13 hemoglobi n, gastroint estinal, stool 2023 024 [email or web address] In-Office Order, Internal Use Only DO Not Attach Compendium DO Not Attach Compendium, Do Not Delete/merge, [id number] 07/05/2023 10:10:13 pap test, thinprep, cervical 2022 023 [email or web address] [facility] (Centralized Electronic Ordering - All Locations), Patient Can Go To The Location Of Their Choice, [id number] 07/16/2022 07:27:04 fecal occult blood, stool 2022 023 [email or web address] 1 In-Office Order, Internal Use Only DO Not Attach Compendium DO Not Attach Compendium, Do Not Delete/merge, [id number] 07/02/2022 09:59:05 Referral None recorded. Procedures None recorded. Surgeries None recorded. Imaging MAMMO, screening , digital, bilateral - Breast Aspiratio n and/or Biopsy if needed 2023 024 [facility] [address] [place], [address], 08/16/2023 09:53:34 MAMMO, screening , digital, bilateral - Breast Aspiratio n and/or Biopsy if needed 2022 023 [facility] [address] [place], [address], 08/02/2022 09:28:03 Medication Orders fluconazo le 150 mg tablet 2021 022 [facility][id number], [address], [id number], 07/02/2022 09:20:46 levofloxa lisha 500 mg tablet 2021 022 [facility] #[id number], [address] [address], [place], [place], [id number], 07/02/2022 09:20:50 Patient TargetsNo targets recorded. Patient Instructions Encounter Date Encounter Id Patient Instructions Last Modified By Organization Details Last Modified Time 11/23/2021 [id number] She is here because she went to [facility] ED on 11/20 nad had the [...] it enlarges. Not available 11/23/2021 11:56:31 11/26/2021 [id number] vaginal yeast infection: care instructions [facility] Not available 11/26/2021 11:19:44 She is here [...] questions answered. Not available 11/26/2021 13:02:02 12/01/2021 [id number] She is here for recheck of her [...] and resolve. Not available 12/01/2021 14:00:57 07/02/2022 [id number] learning about healthy weight Not available 07/02/2022 [...] the breast. 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 Not Available [facility] ([facility]) [address] [place], [address], 07/08/2023 16:06:58 07/06/19 24 07/08/2023 PAP IG (IMAG E GUIDE D) specimen adequacy: Keena valentine Satis facto ry for evalu ation . Endoc ervic al and/o r squam ous metap lasti c cells (endo cervi jez compo nent) are prese nt. Not Available [facility] ([facility]) [address] [facility], [place], [address], 07/08/2023 16:06:58 07/06/19 24 07/08/2023 PAP IG (IMAG E GUIDE D) clinician provided ICD10: Keena valentine Z01.4 19 Not Available [facility] ([facility]) [address] [place], [address], 07/08/2023 16:06:58 07/06/19 24 07/08/2023 PAP IG (IMAG E GUIDE D) performed by: Keena Beltran, Cytot arsh valentine (ASCP ) Not Available [facility] ([facility]) [address] [place], [address], 07/08/2023 16:06:58 07/06/19 24 07/08/2023 PAP IG (IMAG E GUIDE D) . . Not Available [facility] ([facility]) [address] [facility], [place], [address], 07/08/2023 16:06:58 07/06/19 24 07/08/2023 PAP IG [...] the sole means of detec ting cervi jze cance r. Both false -posi tive and false -nega tive repor ts do occur . Not Available [facility] ([facility]) [address] [facility], [place], [address], 07/08/2023 16:06:58 07/06/19 24 07/08/2023 PAP IG (IMAG E GUIDE D) test methodology: Keena t This liqui d based ThinP rep(R ) pap test was scree dee with the use of an image guide d systalbino m. Not Available [facility] ([facility]) [address] [facility], [place], [address], 07/08/2023 16:06:58 07/06/19 24 07/06/2023 hemog lobin , gastr ointe eneida l, stool Occult Blood negati ve Not Available In-Office Order Internal Use Only DO Not Attach Compendium DO Not Attach Compendium, Do Not Delete/merge, [id number] 07/05/2023 09:19:44 08/03/19 23 07/31/2022 MAMMO , scree paul, digit al, bilat eral No observ ation record ed. [address], [address], 08/09/2022 11:01:15 08/20/19 23 08/19/2022 US, breas t No observ ation record ed. [address], [address], 08/19/2022 10:23:08 08/20/19 23 08/19/2022 MAMMO , diagn ostic , digit al, unila teral No observ ation record ed. [address], [address], 08/19/2022 10:23:08 08/16/19 24 08/16/2023 MAMMO , scree paul, digit al, bilat eral No observ ation record ed. Not Available 07/29 10:07:33 Result Notes None recorded. 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 Procedures Surgical History Date Name Laterality Status Provider Name and Address Organization Details Recorded Time 08/16/19 24 Most Recent Mammogram completed Lucía Faulkner in [facility], 07/03/2024 09:53:00 08/30/19 19 cholecystectomy completed Lucía Faulkner in [facility], 06/23/2021 08:45:10 02/14/20 13 Dilation and Curettage completed Lucía Faulkner in [facility], 06/23/2021 08:44:31 Imaging Results Imaging Date Name Status LastModified by [facility] Details LastModified Time 07/31/2022 MAMMO, screening, digital, bilateral completed [address], [address], 08/09/2022 11:01:15 08/19/2022 US, breast completed [facility] [address] [place], [address], 08/19/2022 10:23:08 08/19/2022 MAMMO, diagnostic, digital, unilateral completed [facility] [address] [place], [address], 08/19/2022 10:23:08 08/16/2023 MAMMO, screening, digital, bilateral completed [facility] Information not available 08/16/2023 10:07:33 Procedure Notes None recorded. Medical Equipment None Reported. Allergies Allergen ID Allergen Name Allergen Category Reaction Reaction Severity Criticality Documentation Date Start Date Code Code System Note Provider Name and Address Organization Details Recorded Time 81533 estrogens , conjugate d (HALFWAY) medicatio n angioedem a Not available Not available 06/23/2021 4095 RxNorm Lucía novoa [place] [facility], 08:52:49 Medications Name Sig Start [...] Updated DateTime 2 175.26 cm 29.3 kg/m2 79775.4 4 g 98.2 [degF] 73 /min 135 mm[Hg] 70 mm[Hg] Lucía Zepeda [facility], 2 09:39:06 Date Recorded Body height Body mass index (BMI) Body weight Heart rate Systolic blood pressure Diastolic blood pressure Provider Name and Address Organization Details Last Updated DateTime 2 175.26 cm 29.2 kg/m2 69480.2 9 g 86 /min 128 mm[Hg] 67 mm[Hg] Carmen Zepeda [facility], 2 10:35:40 Date Recorded Body height Body mass index (BMI) Body weight Body temperature Heart rate Systolic blood pressure Diastolic blood pressure Provider Name and Address Organization Details Last Updated DateTime 2 175.26 cm 29.3 kg/m2 17132.0 1 g 98.2 [degF] 77 /min 155 mm[Hg] 73 mm[Hg] Lucía Faulkner in [facility], 2 12:58:48 Date Recorded Body height Body mass index (BMI) Body weight Heart rate Systolic blood pressure Diastolic blood pressure Provider Name and Address Organization Details Last Updated DateTime 3 172.72 cm 29.8 kg/m2 99809.1 g 76 /min 149 mm[Hg] 87 mm[Hg] Lucía Faulkner in [facility], 3 09:19:32 Date Recorded Body height Body mass index (BMI) Body weight Heart rate Systolic blood pressure Diastolic blood pressure Provider Name and Address Organization Details Last Updated DateTime 4 172.72 cm 23.9 kg/m2 50896.7 2 g 65 /min 144 mm[Hg] 81 mm[Hg] apple Faulkner in [facility], 4 09:20:09 Social History Question Answer Notes LastModified by Organizat ion Details LastModified Time Tobacco Smoking Status Former Smoker quit 2017 GABBIE Cueto in [facility], 06/23/2021 08:51:55 What Is Your Level Of [...] Or The Highest Degree You Have Received? AM94173-9 Information not available 07/01/2021 Who Is Your [...] anxious, or unable to sleep at night)? LB2897-3 Information not available 07/05/2023 Family History Relationship [...] for MyRisk panel N Autoimmune Condition N Thyroid Problems N Kidney or Bladder Problems N GI Problems N Lung Disease N Depression N Defects or Inherited Disease N History of Ovarian Cancer N Anemia N History of Breast Cancer N JENNIE [...] mcg/0.25mL dose 1 completed GABBIE Ziegler in [facility], 07/01/2021 08:30:51 Influenza, split virus, quadrivalent, preservative 1 completed GABBIE Ziegler in [facility], 07/01/2021 08:31:00 Tdap 3 completed GABBIE Cueto in [facility], 11/23/2021 09:38:40 Influenza, split virus, quadrivalent, preservative 9 completed GABBIE Cueto in [facility], 11/23/2021 09:38:40 zoster recombinant 2 completed [facility], 11/23/2021 09:38:40 Influenza, split virus, quadrivalent, PF 1 completed Lucía Meczywor null, [place] [facility], 11/23/2021 09:38:40 COVID-19, mRNA, LNP-S, PF, 100 mcg/0.5mL dose or 50 mcg/0.25mL dose 1 completed Lucía Meczywor null, [place] [facility], 11/23/2021 09:38:40 COVID-19, mRNA, LNP-S, PF, 100 mcg/0.5mL dose or 50 mcg/0.25mL dose 1 completed Lucía Meczywor null, [place] [facility], 11/23/2021 09:38:40 Influenza, split virus, quadrivalent, PF 0 completed Lucía Meczywor null, [place] [facility], 11/23/2021 09:38:40 COVID-19, mRNA, LNP-S, PF, 100 mcg/0.5mL dose or 50 mcg/0.25mL dose 1 completed Lucía Meczywor null, [place] [facility], 11/23/2021 09:38:40 Influenza, split virus, trivalent, preservative 3 completed Lucía Meczywor null, [place] [facility], 11/23/2021 09:38:40 influenza, unspecified formulation 2 completed Lucía Meczywor null, [place] [facility], 07/02/2022 09:21:39 Past Encounters Encounter ID Performer Location Encounter Start Date Encounter Closed Date Diagnosis/Indication Diagnosis SNOMED-CT Code Diagnosis ICD10 Code Diagnosis Note [id number] MD VI Corbett MD [address] [facility], [place] [address] [place] [address] 07/01/2021 08:23:17 07/01/2021 11:41:22 Specialized medical examination 07803651 Z01.419 Screening for malignant neoplasm of rectum 027785703 Z12.12 Screening mammography 24 091321 Z12.31 [id number] MD VI Corbett MD [address] [place], [place] [address] [address] 11/17/2021 10:53:35 11/17/2021 14:54:29 Nonpuerperal abscess of right breast [id number] 2977313 N61.1 [id number] MD VI Corbett MD [address] [place] [address] [place] [address] 11/23/2021 09:34:32 11/23/2021 12:05:52 Nonpuerperal abscess of right breast 7523829598 2492900 N61.1 [id number] MD VI Corbett MD [address] [place] [address] [place] [address] 11/26/2021 10:33:33 11/26/2021 13:43:28 Nonpuerperal abscess of right breast [id number] 2829330 N61.1 Candidal vulvovaginitis 40774696 B37.3 [id number] MD VI Corbett MD [address] [place], [place] [address] [place] [address] 12/01/2021 12:55:15 12/01/2021 14:12:35 Nonpuerperal abscess of right breast [id number] 0004239 N61.1 [id number] MD VI Corbett MD [address] [place] [address] [place] [address] 07/02/2022 09:16:08 07/02/2022 10:41:27 Specialized medical examination 08136345 Z01.419 Screening for malignant neoplasm of rectum 792223889 Z12.12 Screening mammography 24 037029 Z12.31 [id number] MD VI Corbett MD [address] [place], [place] [address] [address] 07/05/2023 09:16:31 07/05/2023 10:10:26 Specialized medical examination 34103891 Z01.419 Screening for malignant neoplasm of rectum 904913152 Z12.12 Screening mammography 24 188504 Z12.31 Health Concerns Section Related Observation LastModified by Organization Detai ls LastModified Time None Recorded Concern Status LastModified by Organization Details LastModified Time None Recorded Advance Directives Directive None Recorded Payers Encounter Date Sequence Insurance Name Policy Number Policy Walker Covered Member ID Walker Member ID Guarantor Name 11/23/2021 1 [place] [id number] Seema Elmer [id number] Seema Elmer 11/26/2021 1 [place] [id number] Seema Elmer [id number] Seema Elmer 12/01/2021 1 [place] [id number] Seema Elmer [id number] Seema Elmer 07/02/2022 1 [place] [facility] (O) [id number] Seema Elmer [id number] Seema Elmer 07/05/2023 1 [place] [facility] (O) [id number] Seema Elmer [id number] Seema Elmer Notes Date Note Type [...] MD [address], [place], [address], [facility] - [facility], 11/23/2021 11:56:59 11/26/2021 text/html She is here to recheck the infection, it is not fully resolved with the Bactrim, is still draining purulent material, though less tender than before. Vi Solorio MD [address], [place], [address], [facility] - [facility], 11/26/2021 13:02:17 12/01/2021 text/html She is here for recheck of her right breast abscess. She has 2 more days of her antibiotics left. She notes it is not painful anymore, and stopped draining fluid finally. Vi Solorio MD [address], [place], [address], [facility] - [facility], 12/01/2021 14:01:26 07/02/2022 text/html She is here [...] told not necessary. Vi Solorio MD [address] [facility],[address], [place], [address], [place] - [facility], 07/02/2022 10:05:46 07/05/2023 text/html She is here [...] to do that. Vi Solorio MD [address] [facility],[address], [place], [address], [place] - [facility], 07/05/2023 09:58:36 OBGyn Episode No OBEpisode recorded.
[2024-07-16 08:34] VITALS: BP 106/80; PULSE 85; TEMP 37.1; O2SAT 99; BMI 24.5
== END 2024-07-16 09:06 | disposition home or self-care (01) ==
LOC: HO.HMCFM 08:24
PROVIDERS: PCP Physician Assistant Medical; Visit Provider Physician Assistant Medical
DX: Z00.00 Encounter for general adult medical examination without abnormal findings (principal); D84.1 Defects in the complement system; E66.9 Obesity, unspecified; Z68.24 Body mass index [BMI] 24.0-24.9, adult; M25.9 Joint disorder, unspecified; L98.9 Disorder of the skin and subcutaneous tissue, unspecified; R74.8 Abnormal levels of other serum enzymes; D72.819 Decreased white blood cell count, unspecified

== ENCOUNTER → 2024-07-16 08:23 | Outpatient (BNVA) | payer BC, SELFPAY | PROVIDERS: PCP Physician Assistant Medical; Visit Provider Physician Assistant Medical | DX: Z00.00 Encounter for general adult medical examination without abnormal findings (principal); E66.9 Obesity, unspecified; D84.1 Defects in the complement system; M25.9 Joint disorder, unspecified; L98.9 Disorder of the skin and subcutaneous tissue, unspecified; R74.8 Abnormal levels of other serum enzymes; R79.89 Other specified abnormal findings of blood chemistry | CPT/HCPCS: 96127 ==

== ENCOUNTER 2024-08-16 08:49 | Outpatient (REF) | payer BC, SELFPAY ==
--- OUTSIDE RECORDS SUMMARY | 2024-08-16 09:16 | XMS_ITS | Data Portability ---
Author Organization [place] - [facility],, VI SMITH MD Address [address] [address] Care Team Providers Care Senior Patient Account Representative Name Role Phone [facility] Primary Care Provide r Assessment No assessment recorded. Plan of Treatment Reminders Order Date Submit Date Provider Last Modified By Organization Details Last Modified Time Details Appointments ANNUAL EXAM 2024 11:00A M Vi Smith MD Not available Not available Not available Lab pap test, thinprep, cervical 2023 024 [email or web address] [facility] (Centralized Electronic Ordering - All Locations), Patient Can Go To The Location Of Their Choice, [id number] 07/12/2023 07:26:13 hemoglobi n, gastroint estinal, stool 2023 024 [email or web address] In-Office Order, Internal Use Only DO Not Attach Compendium DO Not Attach Compendium, Do Not Delete/merge, [id number] 07/05/2023 10:10:13 pap test, thinprep, cervical 2022 023 [email or web address] [facility] (Centralized Electronic Ordering - All Locations), Patient Can Go To The Location Of Their Choice, [id number] 07/16/2022 07:27:04 fecal occult blood, stool 2022 023 [email or web address] 1 In-Office Order, Internal Use Only DO Not Attach Compendium DO Not Attach Compendium, Do Not Delete/merge, [id number] 07/02/2022 09:59:05 Referral None recorded. Procedures None recorded. Surgeries None recorded. Imaging MAMMO, screening , digital, bilateral - Breast Aspiratio n and/or Biopsy if needed 2023 024 [facility]), [address] [place], [address], 08/16/2023 09:53:34 MAMMO, screening , digital, bilateral - Breast Aspiratio n and/or Biopsy if needed 2022 023 [facility]), [address] [place], [address], 08/02/2022 09:28:03 Medication Orders fluconazo le 150 mg tablet 2021 022 [facility][id number], [address], [id number], 07/02/2022 09:20:46 levofloxa lisha 500 mg tablet 2021 022 [facility] #[id number], [address] [address], [place], [place], [phone], 07/02/2022 09:20:50 Patient TargetsNo targets recorded. Patient Instructions Encounter Date Encounter Id Patient Instructions Last Modified By Organization Details Last Modified Time 11/23/2021 [id number] She is here because she went to [facility] ED on 11/20 nad had the [...] it enlarges. Not available 11/23/2021 11:56:31 11/26/2021 [id number] vaginal yeast infection: care instructions [email or web address] Not available 11/26/2021 11:19:44 She is here [...] questions answered. Not available 11/26/2021 13:02:02 12/01/2021 [id number] She is here for recheck of her [...] and resolve. Not available 12/01/2021 14:00:57 07/02/2022 [id number] learning about healthy weight Not available 07/02/2022 [...] the breast. Not available 07/02/2022 10:05:26 07/05/2023 [id number] learning about healthy weight Not available 07/05/2023 [...] Tissu e Sourc e: 1: [facility] DIRECTOR PAP TEST, CERVI JEZ: Final Diagn osis: [...] rep Imagi ng Systalbino m with brandon evga or revie w. Clini jez Histo ry (othe r): Z01.4 19, LPS 2 NEG Phone #: [phone], On-Ca ll Patho logis t: [id number] Not Available [facility] (Centralized Electronic Ordering - All Locations) Patient Can Go To The Location Of Their Choice, [id number] 07/15/2022 09:20:35 07/03/19 23 07/02/2022 fecal occul t blood , stool Occult Blood negati ve Not Available In-Office Order Internal Use Only DO Not Attach Compendium DO Not Attach Compendium, Do Not Delete/merge, [id number] 07/02/2022 09:16:56 07/06/19 24 07/08/2023 PAP IG (IMAG E GUIDE D) diagnosis: Keena KRUSE FOR INTRA EPITH ELIAL NATALY Whiteside OR ROSIE PEPPER . Not Available [facility] ([facility]) [address] [place], [address], 07/08/2023 16:06:58 07/06/19 24 07/08/2023 PAP IG (IMAG E GUIDE D) specimen adequacy: Keena valentine Satis facto ry for evalu ation . Endoc ervic al and/o r squam ous metap lasti c cells (endo cervi jez compo nent) are prese nt. Not Available [facility] ([facility]) [address] [facility], [place], [address], 07/08/2023 16:06:58 07/06/19 24 07/08/2023 PAP IG (IMAG E GUIDE D) clinician provided ICD10: Keena valentine Z01.4 19 Not Available [facility] ([facility]) [address] [place], [address], 07/08/2023 16:06:58 07/06/19 24 07/08/2023 PAP IG (IMAG E GUIDE D) performed by: Keena Beltran, Cytot arsh valentine (ASCP ) Not Available [facility] ([facility]) [address] [place], [address], 07/08/2023 16:06:58 07/06/19 24 07/08/2023 PAP IG (IMAG E GUIDE D) . . Not Available [facility] ([facility]) [address] [facility], [place], [address], 07/08/2023 16:06:58 07/06/19 24 07/08/2023 PAP IG [...] ts do occur . Not Available [facility] ([facility]) [address] [facility], [place], [address], 07/08/2023 16:06:58 07/06/19 24 07/08/2023 PAP IG (IMAG E GUIDE D) test methodology: Keena t This liqui d based ThinP rep(R ) pap test was scree dee with the use of an image guide d systalbino m. Not Available [facility] ([facility]) [address] [facility], [place], [address], 07/08/2023 16:06:58 07/06/19 24 07/06/2023 hemog lobin , gastr ointe eneida l, stool Occult Blood negati ve Not Available In-Office Order Internal Use Only DO Not Attach Compendium DO Not Attach Compendium, Do Not Delete/merge, [id number] 07/05/2023 09:19:44 08/03/19 23 07/31/2022 MAMMO , scree paul, digit al, bilat eral No observ ation record ed. [address], [address], 08/09/2022 11:01:15 08/20/19 23 08/19/2022 US, breas t No observ ation record ed. [address], [address], 08/19/2022 10:23:08 08/20/19 23 08/19/2022 MAMMO , diagn ostic , digit al, unila teral No observ ation record ed. [facility] [address] [place], [address], 08/19/2022 10:23:08 08/16/19 24 08/16/2023 MAMMO , scree paul, digit al, bilat eral No observ ation record ed. Not Available 07/29 10:07:33 Result Notes None recorded. 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 Procedures Surgical History Date Name Laterality Status Provider Name and Address Organization Details Recorded Time 08/16/19 24 Most Recent Mammogram completed Lucía Faulkner in [facility], 07/03/2024 09:53:00 08/30/19 19 cholecystectomy completed Lucía Faulkner in [facility], 06/23/2021 08:45:10 02/14/20 13 Dilation and Curettage completed Lucía Faulkner in [facility], 06/23/2021 08:44:31 Imaging Results None recorded. Procedure Notes None recorded. Medical Equipment None Reported. Allergies Allergen ID Allergen Name Allergen Category Reaction Reaction Severity Criticality Documentation Date Start Date Code Code System Note Provider Name and Address Organization Details Recorded Time 78337 estrogens , conjugate d (ALF) medicatio n angioedem a Not available Not available 06/23/2021 4099 RxNorm GABBIE Cueto in [facility], 2 08:52:49 Medications Name Sig Start Date Stop [...] Updated DateTime 3 172.72 cm 29.8 kg/m2 25573.1 g 76 /min 149 mm[Hg] 87 mm[Hg] Lucía Faulkner in [facility], 3 09:19:32 Date Recorded Body height Body mass index (BMI) Body weight Heart rate Systolic blood pressure Diastolic blood pressure Provider Name and Address Organization Details Last Updated DateTime 4 172.72 cm 23.9 kg/m2 07042.7 2 g 65 /min 144 mm[Hg] 81 mm[Hg] apple Faulkner in [facility], 4 09:20:09 Date Recorded Body height Body mass index (BMI) Body weight Body temperature Heart rate Systolic blood pressure Diastolic blood pressure Provider Name and Address Organization Details Last Updated DateTime 2 175.26 cm 29.3 kg/m2 43862.4 4 g 98.2 [degF] 73 /min 135 mm[Hg] 70 mm[Hg] Lucía Faulkner in [facility], 2 09:39:06 Date Recorded Body height Body mass index (BMI) Body weight Heart rate Systolic blood pressure Diastolic blood pressure Provider Name and Address Organization Details Last Updated DateTime 2 175.26 cm 29.2 kg/m2 51720.2 9 g 86 /min 128 mm[Hg] 67 mm[Hg] Carmen Faulkner in [facility], 2 10:35:40 Date Recorded Body height Body mass index (BMI) Body weight Body temperature Heart rate Systolic blood pressure Diastolic blood pressure Provider Name and Address Organization Details Last Updated DateTime 2 175.26 cm 29.3 kg/m2 71462.0 1 g 98.2 [degF] 77 /min 155 mm[Hg] 73 mm[Hg] Lucía Faulkner in [facility], 12:58:48 Social History Question Answer Notes LastModified by Organizat ion Details LastModified Time Tobacco Smoking Status Former Smoker quit 2017 GABBIE Cueto in [facility], 06/23/2021 08:51:55 What Is Your Level Of [...] Or The Highest Degree You Have Received? [id number] Information not available 07/01/2021 Who Is Your [...] anxious, or unable to sleep at night)? [id number] Information not available 07/05/2023 Family History Relationship [...] for MyRisk panel N Autoimmune Condition N Depression N Lung Disease N Defects or Inherited Disease N History of Ovarian Cancer N BRCA testing in past N Anxiety Disorder N Arthritis N Infertility N History of Cancer N Endometriosis N Kidney or Bladder Problems N Thyroid Problems N GI Problems N Anemia N History of Breast Cancer N JENNIE exposure N Osteopenia N Psychiatric Illness N Diabetes N Headaches or Migraines N Asthma N Hepatitis N Heart Disease N Hypertension [...] dose or 50 mcg/0.25mL dose 1 completed Carmen Salazar null, [place] - [facility], 07/01/2021 08:30:51 Influenza, split virus, quadrivalent, preservative 1 completed Carmen Salazar null, [place] - [facility], 07/01/2021 08:31:00 Tdap 3 completed Lucía Meczywor null, [place] - [facility], 11/23/2021 09:38:40 Influenza, split virus, quadrivalent, preservative 9 completed Lucía Meczywor null, [place] - [facility], 11/23/2021 09:38:40 zoster recombinant 2 completed Lucía Meczywor null, [place] - [facility], 11/23/2021 09:38:40 Influenza, split virus, quadrivalent, PF 1 completed Lucía Meczywor null, [place] - [facility], 11/23/2021 09:38:40 COVID-19, mRNA, LNP-S, PF, 100 mcg/0.5mL dose or 50 mcg/0.25mL dose 1 completed Lucía Meczywor null, [place] - [facility], 11/23/2021 09:38:40 COVID-19, mRNA, LNP-S, PF, 100 mcg/0.5mL dose or 50 mcg/0.25mL dose 1 completed Lucía Meczywor null, [place] [facility], 11/23/2021 09:38:40 Influenza, split virus, quadrivalent, PF 0 completed Lucía Meczywor null, [place] [facility], 11/23/2021 09:38:40 COVID-19, mRNA, LNP-S, PF, 100 mcg/0.5mL dose or 50 mcg/0.25mL dose 1 completed Lucía Meczywor null, [place] [facility], 11/23/2021 09:38:40 Influenza, split virus, trivalent, preservative 3 completed Lucía Meczywor null, [place] [facility], 11/23/2021 09:38:40 influenza, unspecified formulation 2 completed Lucía Meczywor null, [place] [facility], 07/02/2022 09:21:39 Past Encounters Encounter ID Performer Location Encounter Start Date Encounter Closed Date Diagnosis/Indication Diagnosis SNOMED-CT Code Diagnosis ICD10 Code Diagnosis Note [id number] MD VI Corbett MD [address] [place] [address], [address] [facility] [place] [address] 07/01/2021 08:23:17 07/01/2021 11:41:22 Specialized medical examination 38929813 Z01.419 Screening for malignant neoplasm of rectum 258255278 Z12.12 Screening mammography 24 449647 Z12.31 [id number] MD VI Corbett MD [address] [place] [address], [address] [place] [address] 11/17/2021 10:53:35 11/17/2021 14:54:29 Nonpuerperal abscess of right breast [id number] N61.1 [id number] MD VI Corbett MD [address] [place] [address], [address] [place] [address] 11/23/2021 09:34:32 11/23/2021 12:05:52 Nonpuerperal abscess of right breast [id number] N61.1 [id number] MD VI Corbett MD [address] [place] [address], [address] [place] [address] 11/26/2021 10:33:33 11/26/2021 13:43:28 Nonpuerperal abscess of right breast [id number] 5870871 N61.1 Candidal vulvovaginitis 29813224 B37.3 [id number] MD VI Corbett MD [address] [facility] [place] [address] 12/01/2021 12:55:15 12/01/2021 14:12:35 Nonpuerperal abscess of right breast [id number] N61.1 [id number] MD VI Corbett MD [address] [facility], [address] [place] [address] 07/02/2022 09:16:08 07/02/2022 10:41:27 Specialized medical examination 70478117 Z01.419 Screening for malignant neoplasm of rectum 027177027 Z12.12 Screening mammography 24 784074 Z12.31 [id number] MD VI Corbett MD [address] [facility], [address] [place] [address] 07/05/2023 09:16:31 07/05/2023 10:10:26 Specialized medical examination 72237176 Z01.419 Screening for malignant neoplasm of rectum 100206595 Z12.12 Screening mammography 24 423452 Z12.31 Health Concerns Section Related Observation LastModified by Organization Detai ls LastModified Time None Recorded Concern Status LastModified by Organization Details LastModified Time None Recorded Advance Directives Directive None Recorded Payers Insurance Date Sequence Insurance Name Policy Number Policy Walker Covered Member ID Walker Member ID Guarantor Name 07/08/2024 1 [facility] [id number] Seema Payne [id number] Seema Payne Notes Date Note Type Note Provider Name [...] seems to be less red than on Saturday. She notes they changed her antibiotic to [...] worsens then would switch to levaquin. Vi Smith MD [address], [place], [address], [facility] - [facility], 11/23/2021 11:56:59 11/26/2021 text/html She is here to recheck the infection, it is not fully resolved with the Bactrim, is still draining purulent material, though less tender than before. Vi Smith MD [address], [place], [address], [place] - [facility], 11/26/2021 13:02:17 12/01/2021 text/html She is here for recheck of her right breast abscess. She has 2 more days of her antibiotics left. She notes it is not painful anymore, and stopped draining fluid finally. Vi Smith MD [address], [place], [address], [facility] - [facility], 12/01/2021 14:01:26 07/02/2022 text/html She is here [...] removal but was told not necessary. Vi Smith MD [address], [place], [address], [facility] - [facility], 07/02/2022 10:05:46 07/05/2023 text/html She is here [...] she prefers not to do that. Vi Smith MD [address], [place], [address], [facility] - [facility], 07/05/2023 09:58:36 OBGyn Episode No OBEpisode recorded.
[2024-08-16 11:01] LABS: MANUAL DIFF FLAG NO
[2024-08-16 11:05] LABS: Basophils Absolute Auto 0.1 X10*3/uL (0.0-0.2); Basophils Percent Auto 1.3 % (0-2); Eosinophils Absolute Auto 0.1 X10*3/uL (0.0-0.4); Eosinophils Percent Auto 3.2 % (0-4); Hematocrit 43.5 % (37.0-47.0); Hemoglobin 14.2 g/dl (12.0-16.0); Imm Gran Abs Auto 0.02 X10*3/uL (0.00-0.03); Imm Gran Pct Auto 0.5 % (0.0-0.4); Lymphocytes Absolute Auto 1.4 X10*3/uL (1.2-4.9); Lymphocytes Percent Auto 36.5 % (20-40); Mean Corpuscular HGB Conc 32.6 g/dl (31.0-35.0); Mean Corpuscular Hemoglobin 28.9 pg (27.0-33.0); Mean Corpuscular Volume 88.4 fL (80.0-98.0); Mean Platelet Volume 10.2 fL (9.4-12.3); Monocytes Absolute Auto 0.3 X10*3/uL (0.1-1.2); Monocytes Percent Auto 8.8 % (2-11); Neutrophils Absolute Auto 1.9 x10*3/uL (2.0-8.3); Neutrophils Percent Auto 49.7 % (45-73); Platelet Count 205 X10*3/uL (160-400); Red Blood Count 4.92 X10*6/uL (4.20-5.50); Red Cell Distribution Width 12.9 % (11.0-16.0); White Blood Count 3.7 X10*3/uL (4.8-10.8)
[2024-08-16 11:35] LABS: Alanine Aminotransferase 14 U/L (0-31); Aspartate Amino Transferase 21 U/L (5-31)
[2024-08-16 12:01] LABS: Rheumatoid Factor < 13.0 IU/mL (<15.0)
== END 2024-08-16 08:50 | disposition home or self-care (01) ==
LOC: HO.WFDLDS 08:49
PROVIDERS: Visit Provider Physician Assistant Medical
DX: M25.9 Joint disorder, unspecified (principal); R79.89 Other specified abnormal findings of blood chemistry
CPT/HCPCS: 36415; 84450; 84460; 85025; 86431

== ENCOUNTER → 2024-11-12 11:00 | Outpatient (BNV) | payer BC, SELFPAY | PROVIDERS: PCP Physician Assistant Medical; Visit Provider Internal Medicine Medical Oncology | DX: D72.819 Decreased white blood cell count, unspecified (principal) | CPT/HCPCS: 99204 ==